=== PATIENT | female | born 1945 | race Caucasian/White ===

== ENCOUNTER 2021-04-28 09:10 | Inpatient (IN) ==
[2021-04-28] MEDS ORDERED: Ipratropium/Albuterol Neb 3 ML IH ONE (09:38)
[2021-04-28 10:19] LABS: Hemoglobin 11.9 g/dL (11.5-15.4); Mean Corpuscular Volume 98.6 fL (83.0-100.0)
[2021-04-28 10:21] LABS: Basophils % 0.1 %; Eosinophils % 0.4 %; Hematocrit 40.8 % (35.3-44.9); Immature Granulocytes % 0.2 % (0-4); Lymphocytes # 0.8 K/mcL (0.6-4.6); Lymphocytes % 7.6 %; Mean Corpuscular HGB Conc 29.2 g/dL (31.6-35.5); Mean Corpuscular Hemoglobin 28.7 pg (28.0-33.3); Mean Platelet Volume 10.1 fL (9.4-12.4); Monocytes # 0.5 K/mcL (0.0-1.3); Monocytes % 4.1 %; Neutrophils # 9.6 K/mcL (1.6-8.9); Platelet Count 255 K/mcL (140-400); Red Blood Count 4.14 M/mcL (3.82-4.97); Red Cell Distribution Width 13.7 % (11.5-14.5); Segmented Neutrophils % 87.6 %; White Blood Count 10.9 K/mcL (4.3-11.1)
[2021-04-28 10:28] LABS: INR 1.1; Prothrombin Time 12.5 Seconds (9.4-12.1)
[2021-04-28 10:31] LABS: Activated Partial Thrombo Time 36.7 Seconds (26.0-36.0)
[2021-04-28 10:48] LABS: Alanine Aminotransferase 8 Units/L (7-52); Albumin 3.1 g/dL (3.5-5.7); Albumin/Globulin Ratio 0.7 (1.1-2.2); Alkaline Phosphatase 64 Units/L (34-104); Aspartate Amino Transferase 14 Units/L (13-39); BUN/Creatinine Ratio 30 (6-26); Bilirubin,Total 0.3 mg/dL (0.3-1.0); Blood Urea Nitrogen 14 mg/dL (8-23); Carbon Dioxide 40 mEq/L (23-29); Chloride 98 mEq/L (98-107); Globulin 4.4 g/dL (2.4-3.5); Glucose 107 mg/dL (70-105); Osmolality,Calculated 297 (280-300); Potassium 4.3 mEq/L (3.5-5.1); Sodium 143 mEq/L (136-145); Total Protein 7.5 g/dL (6.4-8.9); Troponin I < 0.03 ng/mL (< 0.04); eGFR For African Americans > 60 (> 60); eGFR For Non-African Americans > 60 (> 60)
[2021-04-28 11:05] LABS: Influenza A PCR Negative (Negative); Influenza B PCR Negative (Negative); Resp. Syncytial Virus PCR Negative (Negative)
[2021-04-28 11:28] LABS: SARS-CoV-2 by PCR (In House) Negative (Negative)
[2021-04-28 11:43] LABS: VBG HCO3 39 mEq/L (21-27); VBG PCO2 78 mmHg (41-51); VBG PH 7.31 pH Units (7.32-7.42); VBG PO2 66 mmHg (25-50)
[2021-04-28] MEDS ORDERED: cefTRIAXone 1,000 MG in Water for inj. (sterile) 10 ML IVP ONE (12:04)
[2021-04-28] MEDS ORDERED: Azithromycin 500 MG in 0.9 % Sodium Chloride 250 ML IVPB ONE ×2 (12:05→14:00)
[2021-04-28] MEDS ORDERED: Ondansetron 4 MG/2 ML VIAL IVP PRN (13:48)
[2021-04-28] MEDS ORDERED: Naloxone 0.4 MG/ML INJ IVP PRN (13:48)
[2021-04-28] MEDS: Ipratropium Neb 0.5 MG NEBULIZER IH SCH ×2 (15:32→20:09)
[2021-04-28] MEDS ORDERED: MethylPREDNISolone 40 MG/ML VIAL IVP SCH (16:00)
[2021-04-28] MEDS ORDERED: Ipratropium/Albuterol Neb 3 ML IH SCH (16:00)
[2021-04-28] MEDS ORDERED: Budesonide/Formoterol 160/4.5 1 PUFF INH IH SCH (22:00)
[2021-04-29] MEDS: Ipratropium Neb 0.5 MG NEBULIZER IH SCH ×7 (00:22→23:55)
[2021-04-29 03:49] LABS: Basophils % 0.1 %; Eosinophils # 0.1 K/mcL (0.0-0.6); Eosinophils % 0.6 %; Hematocrit 35.7 % (35.3-44.9); Hemoglobin 10.6 g/dL (11.5-15.4); Immature Granulocytes % 0.2 % (0-4); Lymphocytes # 1.3 K/mcL (0.6-4.6); Lymphocytes % 12.8 %; Mean Corpuscular HGB Conc 29.7 g/dL (31.6-35.5); Mean Corpuscular Hemoglobin 29.3 pg (28.0-33.3); Mean Corpuscular Volume 98.6 fL (83.0-100.0); Mean Platelet Volume 10.3 fL (9.4-12.4); Monocytes # 0.6 K/mcL (0.0-1.3); Monocytes % 5.5 %; Neutrophils # 8.5 K/mcL (1.6-8.9); Platelet Count 243 K/mcL (140-400); Red Blood Count 3.62 M/mcL (3.82-4.97); Red Cell Distribution Width 13.5 % (11.5-14.5); Segmented Neutrophils % 80.8 %; White Blood Count 10.5 K/mcL (4.3-11.1)
[2021-04-29 04:05] LABS: BUN/Creatinine Ratio 37 (6-26); Blood Urea Nitrogen 14 mg/dL (8-23); Calcium 8.7 mg/dL (8.6-10.3); Carbon Dioxide 38 mEq/L (23-29); Chloride 98 mEq/L (98-107); Glucose 79 mg/dL (70-105); Lactate Dehydrogenase 121 Units/L (140-271); Magnesium 1.9 mg/dL (1.6-2.6); Osmolality,Calculated 289 (280-300); Phosphorous 3.4 mg/dL (2.7-4.5); Potassium 4.2 mEq/L (3.5-5.1); Sodium 140 mEq/L (136-145); eGFR For African Americans > 60 (> 60); eGFR For Non-African Americans > 60 (> 60)
[2021-04-29] MEDS ORDERED: *HR* Enoxaparin 40 MG/0.4 ML SYRINGE SQ SCH (06:00)
[2021-04-29] MEDS: *HR* Enoxaparin 30 MG/0.3 ML SYRINGE SQ SCH (06:37)
[2021-04-29] MEDS: Tiotropium 10 INH DOSE IH SCH (07:30)
[2021-04-29] MEDS ORDERED: levoFLOXacin 750 MG TABLET PO SCH ×2 (09:00)
[2021-04-29 11:21] LABS: Bilirubin,Urine Negative (Negative); Blood,Urine Negative (Negative); Clarity,Urine Clear (Clear); Color,Urine Light-Yellow (Yellow); Glucose,Urine (UA) Normal (Normal); Ketones,Urine Negative (Negative); Leukocyte Esterase,Urine Negative (Negative); Nitrite,Urine Negative (Negative); PH,Urine 7.5 pH Units (5.0-8.0); Protein,Urine Negative (Neg-Trace); Specific Gravity,Urine 1.012 (1.010-1.025); Urobilinogen,Urine Normal (Normal)
[2021-04-29] MEDS: levoFLOXacin 750 MG TABLET PO SCH (15:00)
[2021-04-29] MEDS: clonazePAM 1 MG TABLET PO SCH (21:31)
[2021-04-30 03:35] VITALS: TEMP 98
[2021-04-30] MEDS: Ipratropium Neb 0.5 MG NEBULIZER IH SCH ×3 (03:50→11:05)
[2021-04-30] MEDS: *HR* Enoxaparin 30 MG/0.3 ML SYRINGE SQ SCH (05:56)
[2021-04-30 06:51] VITALS: BP 134/79; PULSE 101
[2021-04-30] MEDS: Tiotropium 10 INH DOSE IH SCH (07:14)
[2021-04-30 07:19] VITALS: O2SAT 96
[2021-04-30] MEDS: clonazePAM 1 MG TABLET PO SCH (08:54)
[2021-04-30] MEDS: levoFLOXacin 750 MG TABLET PO SCH (08:54)
[2021-04-30] MEDS ORDERED: Metoprolol XL (24 HR) Succ 50 MG TAB.ER.24H PO SCH (09:00)
[2021-04-30] MEDS ORDERED: Aspirin 81 MG TAB.CHEW PO SCH (09:00)
[2021-04-30] MEDS ORDERED: Mirtazapine 15 MG TABLET PO SCH (09:00)
[2021-04-30] MEDS ORDERED: traZODone 50 MG TABLET PO SCH (09:00)
[2021-04-30] MEDS ORDERED: Venlafaxine XR (24 HR) 150 MG CAP.ER.24H PO SCH (09:00)
== END 2021-04-30 11:40 | disposition home health service (06) | DRG 193 ==
LOC: EMEROOARM 09:10 → 3NENU 09:10
PROVIDERS: ADMIT Internal Medicine; ATTEND Internal Medicine

== ENCOUNTER 2021-06-28 15:53 | Inpatient (IN) ==
[2021-06-28 16:42] LABS: Basophils % 0.2 %; Eosinophils # 0.1 K/mcL (0.0-0.6); Eosinophils % 0.8 %; Hematocrit 42.1 % (35.3-44.9); Hemoglobin 12.7 g/dL (11.5-15.4); Immature Granulocytes % 0.3 % (0-4); Lymphocytes # 2.1 K/mcL (0.6-4.6); Lymphocytes % 17.3 %; Mean Corpuscular HGB Conc 30.2 g/dL (31.6-35.5); Mean Corpuscular Hemoglobin 29.4 pg (28.0-33.3); Mean Corpuscular Volume 97.5 fL (83.0-100.0); Monocytes # 1.1 K/mcL (0.0-1.3); Neutrophils # 8.6 K/mcL (1.6-8.9); Platelet Count 270 K/mcL (140-400); Red Blood Count 4.32 M/mcL (3.82-4.97); Red Cell Distribution Width 14.5 % (11.5-14.5); Segmented Neutrophils % 72.4 %; White Blood Count 11.9 K/mcL (4.3-11.1)
[2021-06-28 17:34] LABS: BUN/Creatinine Ratio 39 (6-26); Blood Urea Nitrogen 21 mg/dL (8-23); Calcium 9.6 mg/dL (8.6-10.3); Carbon Dioxide 36 mEq/L (23-29); Chloride 95 mEq/L (98-107); Glucose 84 mg/dL (70-105); Osmolality,Calculated 286 (280-300); Potassium 3.9 mEq/L (3.5-5.1); Sodium 137 mEq/L (136-145); Troponin I 0.04 ng/mL (< 0.04); eGFR For African Americans > 60 (> 60); eGFR For Non-African Americans > 60 (> 60)
[2021-06-28] MEDS: Aspirin 81 MG TAB.CHEW PO SCH (21:42)
[2021-06-28] MEDS ORDERED: Isovue-370 500 ML BOTTLE IVP ONE (23:04)
[2021-06-29 00:40] LABS: VBG HCO3 41 mEq/L (21-27); VBG PCO2 87 mmHg (41-51); VBG PH 7.28 pH Units (7.32-7.42); VBG PO2 28 mmHg (25-50)
[2021-06-29 03:01] LABS: Influenza A PCR Negative (Negative); Influenza B PCR Negative (Negative); Resp. Syncytial Virus PCR Negative (Negative); SARS-CoV-2 by PCR (In House) Negative (Negative)
[2021-06-29] MEDS ORDERED: Ondansetron 4 MG/2 ML VIAL IVP PRN (04:16)
[2021-06-29] MEDS ORDERED: Naloxone 0.4 MG/ML INJ IVP PRN (04:16)
[2021-06-29] MEDS ORDERED: Ipratropium/Albuterol Neb 3 ML IH SCH (04:30)
[2021-06-29] MEDS ORDERED: Azithromycin 500 MG in 0.9 % Sodium Chloride 250 ML IVPB SCH (05:00)
[2021-06-29] MEDS ORDERED: methylPREDNISolone 125 MG/2 ML VIAL IVP ONE (06:00)
[2021-06-29] MEDS ORDERED: Ipratropium 1 PUFF INHALER IH SCH (06:00)
[2021-06-29] MEDS: Levalbuterol Neb 1.25 MG/3 ML IH SCH ×4 (06:14→20:21)
[2021-06-29] MEDS: Aspirin 81 MG TAB.CHEW PO SCH ×2 (08:34→12:33)
[2021-06-29] MEDS: Ipratropium Neb 0.5 MG NEBULIZER IH SCH ×3 (11:32→20:21)
[2021-06-29] MEDS: MethylPREDNISolone 40 MG/ML VIAL IVP SCH ×3 (12:20→23:32)
[2021-06-29] MEDS: Metoprolol XL (24 HR) Succ 50 MG TAB.ER.24H PO SCH (13:18)
[2021-06-29] MEDS: *HR* Heparin 5,000 UNIT/ML VIAL SQ SCH ×2 (14:04→21:37)
[2021-06-30] MEDS: Ipratropium Neb 0.5 MG NEBULIZER IH SCH ×4 (04:14→20:13)
[2021-06-30] MEDS: Levalbuterol Neb 1.25 MG/3 ML IH SCH ×4 (04:14→20:13)
[2021-06-30 05:23] LABS: Hematocrit 36.1 % (35.3-44.9); Mean Corpuscular HGB Conc 30.2 g/dL (31.6-35.5); Mean Corpuscular Hemoglobin 28.8 pg (28.0-33.3); Mean Corpuscular Volume 95.3 fL (83.0-100.0); Mean Platelet Volume 10.3 fL (9.4-12.4); Platelet Count 242 K/mcL (140-400); Red Blood Count 3.79 M/mcL (3.82-4.97); Red Cell Distribution Width 14.1 % (11.5-14.5); White Blood Count 10.1 K/mcL (4.3-11.1)
[2021-06-30] MEDS: *HR* Heparin 5,000 UNIT/ML VIAL SQ SCH ×3 (05:23→21:24)
[2021-06-30] MEDS: MethylPREDNISolone 40 MG/ML VIAL IVP SCH ×4 (05:24→23:44)
[2021-06-30 05:30] LABS: Hemoglobin 10.9 g/dL (11.5-15.4)
[2021-06-30 05:41] LABS: BUN/Creatinine Ratio 43 (6-26); Blood Urea Nitrogen 22 mg/dL (8-23); Calcium 9.3 mg/dL (8.6-10.3); Carbon Dioxide 36 mEq/L (23-29); Chloride 93 mEq/L (98-107); Glucose 158 mg/dL (70-105); Osmolality,Calculated 289 (280-300); Potassium 3.9 mEq/L (3.5-5.1); Sodium 136 mEq/L (136-145); eGFR For African Americans > 60 (> 60); eGFR For Non-African Americans > 60 (> 60)
[2021-06-30] MEDS: Metoprolol XL (24 HR) Succ 50 MG TAB.ER.24H PO SCH (07:58)
[2021-06-30] MEDS: Aspirin 81 MG TAB.CHEW PO SCH (07:59)
[2021-06-30 10:24] LABS: Hematocrit 33.7 % (35.3-44.9); Hemoglobin 10.3 g/dL (11.5-15.4)
[2021-06-30] MEDS: clonazePAM 1 MG TABLET PO SCH (22:02)
[2021-07-01] MEDS: Levalbuterol Neb 1.25 MG/3 ML IH SCH ×4 (03:53→21:30)
[2021-07-01] MEDS: Ipratropium Neb 0.5 MG NEBULIZER IH SCH ×4 (03:53→21:30)
[2021-07-01] MEDS: *HR* Heparin 5,000 UNIT/ML VIAL SQ SCH ×3 (05:26→20:00)
[2021-07-01] MEDS: MethylPREDNISolone 40 MG/ML VIAL IVP SCH ×3 (05:27→17:31)
[2021-07-01] MEDS: Metoprolol XL (24 HR) Succ 50 MG TAB.ER.24H PO SCH (10:03)
[2021-07-01] MEDS: Aspirin 81 MG TAB.CHEW PO SCH (10:03)
[2021-07-01] MEDS: clonazePAM 1 MG TABLET PO SCH ×2 (10:03→20:00)
[2021-07-02] MEDS: MethylPREDNISolone 40 MG/ML VIAL IVP SCH ×2 (00:35→06:14)
[2021-07-02] MEDS: Ipratropium Neb 0.5 MG NEBULIZER IH SCH ×4 (04:36→21:03)
[2021-07-02] MEDS: Levalbuterol Neb 1.25 MG/3 ML IH SCH ×4 (04:36→21:03)
[2021-07-02] MEDS: *HR* Heparin 5,000 UNIT/ML VIAL SQ SCH ×3 (06:14→20:08)
[2021-07-02] MEDS: Aspirin 81 MG TAB.CHEW PO SCH (07:56)
[2021-07-02] MEDS: Metoprolol XL (24 HR) Succ 50 MG TAB.ER.24H PO SCH (07:56)
[2021-07-02] MEDS: clonazePAM 1 MG TABLET PO SCH ×2 (07:56→20:08)
[2021-07-02] MEDS: predniSONE 20 MG TABLET PO SCH (12:35)
[2021-07-02] MEDS ORDERED: traZODone 50 MG TABLET PO SCH (21:15)
[2021-07-03] MEDS: Levalbuterol Neb 1.25 MG/3 ML IH SCH ×2 (03:48→10:54)
[2021-07-03] MEDS: Ipratropium Neb 0.5 MG NEBULIZER IH SCH ×2 (03:48→10:54)
[2021-07-03] MEDS: *HR* Heparin 5,000 UNIT/ML VIAL SQ SCH ×2 (06:05→14:04)
[2021-07-03] MEDS: Metoprolol XL (24 HR) Succ 50 MG TAB.ER.24H PO SCH (08:34)
[2021-07-03] MEDS: predniSONE 20 MG TABLET PO SCH (08:34)
[2021-07-03] MEDS: clonazePAM 1 MG TABLET PO SCH (08:34)
[2021-07-03] MEDS: Aspirin 81 MG TAB.CHEW PO SCH (08:34)
[2021-07-03 11:40] VITALS: BP 140/89; PULSE 73; TEMP 97.9; O2SAT 99
== END 2021-07-03 15:07 | disposition home or self-care (01) | DRG 189 ==
LOC: 2ANU 15:53 → EMEROOARM 15:53 → 2ANU 06-29 04:13
PROVIDERS: ADMIT Internal Medicine; ATTEND Internal Medicine